=== PATIENT | female | born 1960 | race Caucasian/White ===

== ENCOUNTER 2017-01-15 10:10 | Emergency (ER) | payer OTHER ==
[~2017-01-15 10:10] MED LIST: BECL8.7A5 IH; DULO30CA PO; FEXO180T85 PO; GABA-502 PO; IPRA0.2S51 IH; KETO10DR13 BOTH_EYES; LEVA1.2515 INHALATION; LEVA15HF5 INHALATION; LOSA100T29 PO; MOME13HF INHALATION; MONT10TA23 PO; NAPR500T PO; ONDA-53 PO; PANT40TA3 PO; PRAM0.256 PO; PRD5T PO; ZOLM2.5T6 PO
[2017-01-15 10:25] VITALS: BP 129/80; PULSE 89; RESP 18; O2SAT 97
--- NOTE | 2017-01-15 10:25 | ED.REPORT ---
HPI-Dyspnea / Wheezing Date of Service Jan 15, 2017 ED Provider: Giovanny Harper MD History of Present Illness: Computer states here for SOB but pt is explicit that she is here for abdominal pain and her visit was regarding abdominal pain. Pt is a 56 y.o. female with hx of cholecystectomy, PE, and GERD who presents to the ED from c/o waxing and waning periumbilical abdominal pain radiating to her left chest currently rated at a 7 onset 2 weeks ago. Pt was seen at for her abdominal pain and they were concerned about her increased SOB so they recommended she come into the ED. Pt states that her SOB is worse than normal but not a current concern for her. She reports associated nausea, abdominal distention, and increased diarrhea (typically has 3-5 episodes a day and now has 8). Denies vomiting and dysuria. She states that the abdominal pain and distention increases after eating. She reports that it feels like "something is going to pop out" of her abdomen. She states that she was visiting her father in the hospital 2 weeks ago and he was dx with sepsis due to E. coli. Pt also reports a recent 5 day course of Tamiflu. Nursing Notes Stated Complaint: SHORTNESS OF BREATH/SENT FROM URGENT CARE Nursing Notes Reviewed: Yes (HOST[employer], [employer] Metrics not reconciled - on Xarelto for hx of PE) Allergies: Coded Allergies: Penicillins (Verified Allergy, Severe, 08/17/16) RASH salmeterol xinafoate (Verified Allergy, Severe, 08/17/16) theophylline (Verified Allergy, Severe, 08/17/16) latex (Verified Allergy, Intermediate, RASH, 08/17/16) blisters albuterol (Verified Adverse Reaction, Severe, NUMB FEELING, 08/17/16) NUMB tiotropium (Verified Adverse Reaction, Unknown, sore throat, 08/17/16) Scheduled Beclomethasone Dipropionate (Qvar) 8.7 Gm Aer.w.adap 2 PUFFS IH BID Duloxetine (Cymbalta) 30 Mg Capsule.dr 90 MG PO QAM Fexofenadine (Andreina Allergy) 180 Mg Tablet 180 MG PO QAM Gabapentin (Gabapentin) 300 Mg Capsule 900 MG PO QPM Losartan Potassium (Losartan Potassium) 100 Mg Tablet 100 MG PO DAILY Mometasone/Formoterol (Dulera 200 Mcg/5 Mcg Inhaler) 13 Gm Hfa.aer.ad 2 PUFFS INHALATION BID Montelukast (Montelukast) 10 Mg Tablet 10 MG PO HS Pantoprazole DR (Pantoprazole DR) 40 Mg Tablet.dr 40 MG PO DAILY Pramipexole Dihydrochloride (Pramipexole Dihydrochloride) 0.25 Mg Tablet 0.25 MG PO HS Prednisone (PredniSONE) 5 Mg Tab 5 MG PO DAILY Scheduled PRN Ipratropium [place] (Ipratropium [place] Inhalant Solution) 0.2 Mg/1 Ml Solution 0.2 MG IH QID PRN PRN For Shortness of Breath Ketotifen Fumarate (Allergy Eye Drops) 10 Ml Drops 1 DROP BOTH_EYES DAILY PRN PRN For Eye Irritation Levalbuterol (Levalbuterol) 1.25 Mg/3 Ml Vial.neb 3 ML INHALATION TID PRN PRN For Shortness of Breath Levalbuterol Tartrate (Xopenex Hfa) 15 Gm Hfa.aer.ad 2 PUFFS INHALATION Q4H PRN PRN For Shortness of Breath Metoclopramide (Metoclopramide) 10 Mg Tablet 10 MG PO TID PRN PRN NAUSEA/abd pain TRy taking ~20 minutes before meals Naproxen (Naprosyn) 500 Mg Tablet 1,000 MG PO DAILY PRN PRN For Pain Ondansetron (Ondansetron) 4 Mg Tablet 4-8 MG PO TID PRN PRN For Nausea Zolmitriptan (Zolmitriptan) 2.5 Mg Tablet 2.5 MG PO ONCE PRN PRN migraine may be repeated after 2 hrs oxyCODONE-Acetaminophen 5-325 mg (oxyCODONE-Acetaminophen 5-325 mg) 1 Each Tablet 1-2 TAB PO Q6H PRN PRN For Pain General Time Seen by MD: 10:20 Chief Complaint Other (Abdominal pain) Hx Obtained From: Patient Arrived By: Walk-in Sudden in Onset?: Yes Onset Occurred: More than a week ago... (2 weeks) Symptom Duration: Waxes and wanes Quality: Painful, Pressure Radiation: : Chest left Severity: Current: Pain level 7 out of 10 Severity: Maximum: Severe Past Medical History Past Medical History Notes: PCP: Dr. Wiseman at the [facility] in [place] [employer] Principal: Dr. Bhatt Well Cleaner: Dr. Evelia Virgen 01-15-17 Patient notes family member hospitalized w/sepsis at [facility] from infected kidney stones and is reportedly ESBL E Coli+ Past Medical History Anticoagulated on Xarelto for hx of PE Asthma Osteoarthritis Vitamin D deficiency Migraine Tubular adenoma Asthma IBS (irritable bowel syndrome) Osteopenia DDD (degenerative disc disease), cervical PLMD (periodic limb movement disorder) BEREKET (obstructive sleep apnea) Allergic rhinitis Anxiety and depression BCC (basal cell carcinoma of skin) GERD (gastroesophageal reflux disease) RLS (restless legs syndrome) Fibromyalgia H/o PE's on Coumadin Hypertension Hx of scoliosis Reports: Asthma, GERD, Hypertension Past Surgical History Hysterectomy Patellar fracture repairs Spinal fusion for Scoliosis Cholecystectomy 2012 Fractured patellas bilaterally 1993 with surgical pin placement Left knee arthroplasty 2000 Adenoidectomy Family History Significant for Migraines Father had bypass surgery and Stroke Mother had colitis and Rheumatoid arthritis No history of clotting diseases or cancer Smoking History Never Smoker Social History Alcohol Use: Denies alcohol use Drug Use: Denies drug use Other Social History: Good social support, , Lives with children, Local resident Ambulatory Status Independent Review of Systems Abdominal distention Respiratory: Reports: Shortness of breath Cardiovascular: Reports: Chest pain Complete sys rev & neg: except as marked. GI: Reports: Abdominal pain, Diarrhea, Nausea, Denies: Vomiting Female: Denies: Dysuria Physical Exam Initial Vital Signs Vital Signs (First) Date Time Temp Pulse Resp B/P Pulse Ox O2 Delivery O2 Flow Rate FiO2 01/15/17 10:25 37.2 89 18 129/80 97 Nasal Cannula 2 Initial VS: Reviewed (none on chart, ordered), Unavailable, Vital signs normal Head / Eyes: Atraumatic, Normocephalic Extremities: Vascular intact, Neuro intact Skin: Warm, Dry, No cyanosis Neurologic: Alert, Oriented, Nonfocal Psychiatric: Mood/affect normal, Behavior normal, Normal thought content General/Constitutional: Awake, Alert, No acute distress, Well appearing, Well developed, Well hydrated, Not toxic appearing Distress / Hydration: Negative: Dehydration mild Appearance / Presentation: Positive: Obese, morbidly, Uncomfortable Respiratory / Chest: Atraumatic, Breath sounds NL, No respiratory distress Diminished Breath Sounds: Positive: Decreased bilateral Lungs clear, bilaterally Abdomen: Atraumatic, Soft, No guarding, No rebound, BS normoactive, No distention, No palpable mass Tenderness/Guarding/Rebound: Positive: Tender epigastric, Tender periumbilical Interpretation & Diagnostics Lab Results Interpretation Result Diagram: 01/15/17 1017 01/15/17 1017 Test 01/15/17 10:17 01/15/17 11:13 White Blood Count 11.3th/mm3 (3.8-10.1) Red Blood Count 4.84mil/mm3 (3.90-5.20) Hemoglobin 12.4g/dL (12.0-15.6) Hematocrit 39.0% (35.0-46.0) Mean Corpuscular Volume 80.6fL (81-100) Mean Corpuscular Hemoglobin 25.6pg (27.0-35.0) Mean Corpuscular Hemoglobin Concent 31.8% (32.0-37.0) Red Cell Distribution Width 17.0% (12.3-15.4) Platelet Count 359bil/L (150-400) Neutrophils (%) (Auto) 72.8% (40-74) Lymphocytes (%) (Auto) 15.9% (14-46) Monocytes (%) (Auto) 8.4% (4-12) Eosinophils (%) (Auto) 2.3% (0-5) Basophils (%) (Auto) 0.4% (0-3) Sodium Level 137mEq/L (134-144) Potassium Level 4.3mEq/L (3.5-5.2) Chloride Level 97mEq/L (97-108) Carbon Dioxide Level 25mmol/L (18-29) Blood Urea Nitrogen 12mg/dL (6-24) Creatinine 0.47mg/dL (0.57-1.00) Estimat Glomerular Filtration Rate 196mL/min (>59) Glucose Level 103mg/dL (60-99) Calcium Level 9.3mg/dL (8.5-10.1) Total Bilirubin 0.3mg/dL (0.0-1.2) Aspartate Amino Transf (AST/SGOT) 21U/L (0-50) Alanine Aminotransferase (ALT/SGPT) 17U/L (0-32) Alkaline Phosphatase 73U/L (25-150) Total Protein 7.1g/dL (6.4-8.4) Albumin 4.0g/dL (3.4-5.0) Lipase 26U/L (13-60) Hold Urine Received (Received) Lab Results Interpretation: CBC trace leukocytosis CMP normal General Lab Results Interp 1: CBC - leukocytosis ECG Interpretation ECG Interpretation: EKG from reviewed, no indications to warrant repeat. Time: 10:41 Interpreted by: ED physician Normal ECG Interpretation: Normal rate (93), Normal sinus rhythm, No acute ischemic changes CT Abd / Pelvis Interpretation IMPRESSION: 1. Small hiatal hernia 2. Hepatic steatosis. 3. Fat-containing ventral hernia in the upper anterior abdominal wall. 4. Scoliosis with degenerative/post surgical changes in thoracic and lumbar spine. Dictated by: Jordan Ardno MD on 01/15/17 at 13:04 Approved by: Jordan Ardon MD on 01/15/17 at 13:12 Re-Eval/Medical Decision Med Decision/Clinical Course This is a 56-year-old female with chronic shortness breath he states she is here actually for abdominal discomfort with worsening pain, she is periumbilical pain often following attempts at eating, nausea, or she has chronic diarrheas been worse in the past week. She has been at [place] visiting a family member who is ill with sepsis, and he sounds like they may have ESBL E Coli UTI - she is also concerned about potential exposure pathogens. sHe is obese, but in no distress. She is a complicated patient with a complex patient with multiple comorbidities who is on steroids, has had prior abdominal surgeries including cholecystectomy , and is also anticoagulated on Xarelto. For these reasons workup was pursued. Blood work revealed trace leukocytosis, nonspecific and again the patient's on steroids. CT abdomen and pelvis was negative for overt pathology. She was observed for some number of hours but did well clinically. She appears well clinically. I am not finding indication of a dangerous etiology. I think the patient be discharged with supportive measures. Routine precautions however were reviewed carefully with the patient. Cleaning the need to return for worsening symptoms occur. Patient is discharged in good condition Source of Hx: Old records Re-Evaluation/Progress : Time of Eval: 14:55 Re-Evaluation/Progress Note: Pt rechecked. Discussed imaging and lab results and plan for discharge, pt understands and agrees with plan. Differential Diagnosis: Negative: Acute coronary syndrome, Airway obstruction, COPD exacerbation, Carbon monoxide poisoning, Cardiogenic shock, Exercise induced asthma Counseled Regarding: Diagnosis Discharge & Departure Impression: Primary Impression: Abdominal pain Abdominal location: generalized Qualified Code: R10.84 - Generalized abdominal pain Additional Impressions: Diarrhea Anticoagulated by anticoagulation treatment Disposition: Home Discharge Condition All VS Reviewed: Yes Condition: Stable Additional Instructions: 1. A dangerous cause of the abdominal pain was not identified. 2. Your CT scan did not reveal evidence of a bowel obstruction or other dangerous cause. Additionally there are no findings on CT scan of a colitis-a type of infection of the intestinal wall can occur and cause these symptoms. 3. Your blood tests were also normal. 4. Although your test were all normal-there are number of different conditions that can cause this type of pain and diarrhea without labs or CT imaging abnormalities-including a number of viral infections. 5. At this stage the treatment is supportive. 6. Follow-up with your doctor this coming week. 7. Return if new or worsening symptoms occur. Referrals: Jason Henderson DO (PCP) Chadd Attestation Portions of this note were transcribed by Caitlin Estrada. I, Dr. Harper personally performed the history, physical exam and medical decision-making; I reviewed and confirmed the accuracy of the information in the transcribed note. Signed by: Chadd Mello, 01/15/17 and [id number]. copies to: Jason Henderson Matthew F MD Jan 15, 2017 10:25 CAITLIN ESTRADA Jan 15, 2017 10:33
[2017-01-15] MEDS ORDERED: Ondansetron 2 mg/mL 2 mL Inj IVPUSH ONE (10:40)
[2017-01-15] MEDS ORDERED: Iohexol 300 mg/mL 30 mL Inj PO ONE (10:40)
[2017-01-15] MEDS ORDERED: 0.9% Sodium Chloride 1,000 ML IV SCH (10:40)
[2017-01-15 11:08] LABS: BASOPHILS % (AUTO) 0.4 % (0-3); EOSINOPHILS % (AUTO) 2.3 % (0-5); MONOCYTES % (AUTO) 8.4 % (4-12); Mean Corpuscular Hemoglobin 25.6 pg (27.0-35.0); Mean Corpuscular Volume 80.6 fL (81-100); NEUTROPHILS % (AUTO) 72.8 % (40-74); Platelet Count 359 bil/L (150-400)
[2017-01-15] MEDS ORDERED: METO10TA3 PO (15:08)
[2017-01-15] MEDS ORDERED: OXYC1TAB24 PO (15:08)
--- NOTE | 2017-01-15 15:15 | DRSVH ---
PROCEDURE: CT ABDOMEN AND PELVIS WITH CONTRAST ([id number]) INDICATIONS: 56 old woman with upper pain. TECHNIQUE: After the administration of intravenous contrast, 5 mm thick sections acquired from the diaphragm to the symphysis. 5 mm coronal and sagittal reformats were acquired. For radiation dose reduction, the following was used: automated exposure control, adjustment of mA and/or kV according to patient siz e. COMPARISON: [facility], CT, CT ANGIO CHEST PE, 08/17/2016, 13:19. [facility] , CR, XR CHEST 1VW (PORTABLE), 09/19/2016, 12:43. FINDINGS: Image quality: Excellent. ABDOMEN: Lung bases: Bibasilar discoid atelectasis r. Heart size is normal. Small hiatal hernia. Solid organs: There is diffuse hepatic fatty infiltration. Liver and spleen are normal in size and e nhancement. Gallbladder is surgically removed. Biliary system is non dilated. Pancreas enhances no rmally. No adrenal nodules. Kidneys demonstrate normal size and enhancement, without hydronephrosis . Peritoneum and bowel: Bowel loops demonstrate normal wall thickness and caliber. No free fluid or a ir. Nodes and vessels: No retroperitoneal or mesenteric adenopathy by size criteria. Aorta and inferior vena cava are normal in size. Miscellaneous: Small fat-containing ventral hernia is noted above the umbilicus. PELVIS: Genitourinary: Bladder wall thickness is normal. Miscellaneous: No inguinal hernias or adenopathy. Bones: No suspicious bony lesions. No vertebral body compression fractures. There is scoliosis and degenerative/postsurgical changes in thoracic and lumbar spine. IMPRESSION: 1. Small hiatal hernia. 2. Hepatic steatosis. 3. Fat-containing ventral hernia in the upper anterior abdominal wall. 4. Scoliosis with degenerative/post surgical changes in thoracic and lumbar spine. Dictated by: Jordan Ardon M.D. on 01/15/2017 at 13:04 Approved by: Jordan Ardon M.D. on 01/15/2017 at 13:12
[2017-01-15 15:20] VITALS: BP 127/78; PULSE 84; RESP 18; O2SAT 97
[2017-03-15] MEDS ORDERED: RIVA20TA PO (11:10)
[2017-03-15] MEDS ORDERED: RIVA15TA PO (11:10)
[2017-03-15] MEDS ORDERED: PRAM0.5T3 PO (11:10)
[2017-03-15] MEDS ORDERED: RANI300C PO (11:10)
== END 2017-01-15 15:21 | disposition home or self-care (01) ==
LOC: SED 10:10
DX: R10.33 Periumbilical pain (principal); R19.7 Diarrhea, unspecified; R06.02 Shortness of breath; J45.909 Unspecified asthma, uncomplicated; K21.9 Gastro-esophageal reflux disease without esophagitis; I10 Essential (primary) hypertension; Z79.01 Long term (current) use of anticoagulants; Z88.0 Allergy status to penicillin; Z88.8 Allergy status to other drugs, medicaments and biological substances; Z91.040 Latex allergy status
CPT/HCPCS: 36415; 74177; 80053; 81002; 83690; 85025; 93005; 96361; 96374; 99285; A4300; G0463; J2405; J7030; Q9967

== ENCOUNTER 2017-03-16 12:28 | Day surgery (SDC) | payer OTHER ==
[~2017-03-16] VITALS: Ht 167.6 cm; Wt 141.1 kg
[~2017-03-16 12:28] MED LIST changes: +Lactated Ringer's 1,000 ML IV ONE; +Lactated Ringer's 1,000 ML IV SCH; +METO10TA3 PO; +MetoCLOpramide 5 mg/mL 2 mL Inj IVPUSH PRN; +Ondansetron 2 mg/mL 2 mL Inj IVPUSH PRN; +PRAM0.5T3 PO; +RANI300C PO; +RIVA15TA PO; +RIVA20TA PO
[2017-03-16] MEDS ORDERED: Propofol 10,000 mCg/mL 20 mL Inj ONE (12:29)
[2017-03-16 13:19] VITALS: BP 145/72; PULSE 100; RESP 16; O2SAT 93
[2017-03-16] MEDS ORDERED: OMEP20CA11 PO (13:53)
[2017-03-16] MEDS ORDERED: MOME13HF2 IH (13:53)
[2017-03-16] MEDS ORDERED: LEVA15HF5 IH (13:53)
[2017-03-16] MEDS ORDERED: NAPR500T PO (13:53)
[2017-03-16] MEDS ORDERED: OMEP20TA86 PO (13:53)
--- NOTE | 2017-03-16 14:14 | PCM.HPANE ---
Patient Data Surgeon Admitting Provider: Attending Provider:Keegan Arceo MD Primary Care Physician:Willis Estrada DO Other Provider:Odalis Stein Anesthesia Reason for Visit Hx Of Colon Polyps/Epigastric Pain Ht/WT & BMI Height (Feet): 5 Height (Inches): 6 Weight (Kilograms): 141.07 Body Mass Index 49.00 Allergies Coded Allergies: Penicillins (Verified Allergy, Severe, 03/15/17) RASH salmeterol xinafoate (Verified Allergy, Severe, 03/15/17) theophylline (Verified Allergy, Severe, 03/15/17) latex (Verified Allergy, Intermediate, RASH, 03/15/17) blisters salmeterol (Verified Allergy, Unknown, 03/15/17) albuterol (Verified Adverse Reaction, Severe, NUMB FEELING, 03/15/17) NUMB codeine (Verified Adverse Reaction, Severe, 03/15/17) gi upset milk (Verified Adverse Reaction, Severe, Nausea,Vomiting, 03/15/17) tiotropium (Verified Adverse Reaction, Unknown, sore throat, 03/15/17) Past Anesthesia History Anesthesia History: Denies:: Abnormal Airway, Anesthesia Reactions, Difficult Intubation, Fam Anesthesia Reaction, Fam Malignant Hypertherm, Malignant Hyperthermia Diabetes History Hx Diabetes?: No MRSA MRSA: No Medications Blood Thinner: Xarelto Last Dose Blood Thinner: Mar 13, 2017 Home Meds Incl Beta Cy: No Active Scripts Metoclopramide 10 Mg Xwhkgs71 Mg PO TID PRN NAUSEA/abd pain #30 TABLET Ref 0 TRy taking ~20 minutes before meals Prov:Giovanny Harper MD 01/15/17 Prednisone (PredniSONE)5 Mg Tab5 Mg PO DAILY #30 Prov:Jhoan Cortez MD 08/19/16 Reported Medications Omeprazole 20 Mg Capsule.dr20 Mg PO BID Ref 0 03/16/17 Omeprazole 20 Mg Tablet.dr20 Mg PO DAILY 03/16/17 Levalbuterol Tartrate (Xopenex Hfa)15 Gm Hfa.aer.ad2 Puff IH Q4 PRN For Shortness of Breath #1 INH 03/16/17 Naproxen (Naprosyn)500 Mg Avejyn068 Mg PO BID PRN For Pain Ref 0 03/16/17 Mometasone/Formoterol (Dulera 100 Mcg/5 Mcg Inhaler)13 Gm Hfa.aer.ad2 Puffs IH BID 03/16/17 Rivaroxaban (Xarelto)20 Mg Nnpgqy33 Mg PO DAILYWD 03/15/17 Ranitidine 300 Mg Pfdvsrf178 Mg PO DAILY Ref 0 03/15/17 Pramipexole Dihydrochloride (Mirapex)0.5 Mg Tablet0.5 Mg PO HS 03/15/17 Fexofenadine (Andreina Allergy)180 Mg Hlthzh469 Mg PO QAM 08/17/16 Zolmitriptan 2.5 Mg Tablet2.5 Mg PO ONCE PRN migraine may be repeated after 2 hrs 08/17/16 Losartan Potassium 100 Mg Rpwuof555 Mg PO DAILY 08/17/16 Levalbuterol 1.25 Mg/3 Ml Vial.neb3 Ml INHALATION TID PRN For Shortness of Breath 08/17/16 Ketotifen Fumarate (Allergy Eye Drops)10 Ml Drops1 Drop BOTH_EYES DAILY PRN For Eye Irritation 08/17/16 Levalbuterol Tartrate (Xopenex Hfa)15 Gm Hfa.aer.ad2 Puffs INHALATION Q4H PRN For Shortness of Breath 08/17/16 Naproxen (Naprosyn)500 Mg Tablet1,000 Mg PO DAILY PRN For Pain 02/13/16 Beclomethasone Dipropionate (Qvar)8.7 Gm Aer.w.adap2 Puffs IH BID 01/07/16 Ondansetron 4 Mg Tablet4-8 Mg PO TID PRN For Nausea 01/07/16 Montelukast 10 Mg Mqubwv71 Mg PO HS 01/07/16 Ipratropium [place] (Ipratropium [place] Inhalant Solution)0.2 Mg/1 Ml Solution0.2 Mg IH QID PRN For Shortness of Breath 01/07/16 Gabapentin 300 Mg Hpcjnxb212 Mg PO QPM 01/07/16 Duloxetine (Cymbalta)30 Mg Capsule.dr90 Mg PO QAM 01/07/16 Discontinued Reported Medications Rivaroxaban (Xarelto)15 Mg Aigjgr46 Mg PO BID 03/15/17 Pramipexole Dihydrochloride 0.25 Mg Tablet0.25 Mg PO HS 08/17/16 Mometasone/Formoterol (Dulera 200 Mcg/5 Mcg Inhaler)13 Gm Hfa.aer.ad2 Puffs INHALATION BID 08/17/[address] 40 Mg Tablet.dr40 Mg PO DAILY 01/07/16 Discontinued Scripts oxyCODONE-Acetaminophen 5-325 mg 1 Each Tablet1-2 Tab PO Q6H PRN For Pain #20 TABLET Ref 0 Prov:Giovanny Harper MD 01/15/17 Last Time Dose Received Took all meds and scheduled and prn inhalers today as prescribed History History of ENT Problems?: Yes HEENT History: Positive for:: Dysphagia (SOLIDS/LIQUIDS) Hearing Problem (MILD MESA GRANDE) Sinus Problem (r/t seasonal allergies) Denies:: Abnormal Airway Difficult Intubation Denture Type: None Teeth Condition: Within Normal Limits Hx of Heart Problems?: No Cardiovascular History: Positive for:: Edema Hypertension Denies:: AICD Atrial Fibrillation Chest Pain Congestive Heart Failure Pacemaker Valvular Heart Disease Hx of Respiratory Problem?: Yes Respiratory History: Positive for:: Asthma Dyspnea Pneumonia Denies:: COPD Cough Hemoptysis Tuberculosis Other Resp Pertinent History: HOME O2 2L. Other History/Comment Diagnosed with asthma 20 years ago. It's worsened in last 11 years. Has exacerbations 4 times per year. Most recently had an exacerbation related to flu/virus URI, 3 weeks ago. Has been on O2 for approximately 6 months. She feels her breathing is at baseline. Hx Neurologic Problems?: Yes Neurological History: Positive for:: Headaches (migranes) Denies:: CVA Dementia Hx of GI Problems?: Yes Other GI Pertinent History: HX OF DUODENAL ULCER Hx of Problems?: No HX of Peritoneal Dialysis: No Female Hx: Denies:: Currently Pelvic Inflammatory Problems with Breasts? Hx Musculoskeletal Problems?: Yes Musculoskeletal History: Positive for:: Back Injury (h/o scoliosis, DDD cervical) Fibromyalgia Musculoskeletal Trauma (rt.foot stress fractures) Denies:: Joint Replacement Hx of Psycho/Social Problems?: Yes Psycho Social History: Positive for:: Hx Depression Denies:: Anxiety Hx Surgeries?: Yes (TONSILS/MAHI, T FUS W/ RODS, LAP ANA, BLADDER SLING, HYSTO, BILAT KNEE ) Hx Any Other Health Problems?: Yes Other History: Positive for:: Cancer (basal cell ca) Hospitalization Denies:: Thyroid Disease History Blood Transfusions: Positive for:: Blood Transfusions Denies:: Blood Transfuse Reaction Hx Diabetes: No Hx Alcohol Use: NoHx Substance Use: No Smoking Status: Never Smoker Have You Smoked inLast 12 mo: No Stop/Bang Treated for Sleep Apnea?: Yes Do You Have a CPAP Machine?: Yes (COMPLIANT WITH NIGHTLY USE) Risk Assessment Category Category 1A: Patient has history of documented sleep apnea, and HAS NOT received any narcotic, sedative or anesthesia administration during this stay. Category 1B: Patient has history of documented sleep apnea, and HAS received any narcotic , sedative or anesthesia administration during this stay Category 2: Patient has SUSPECTED Obstructive Sleep Apnea, and HAS received any narcotic , sedative or anesthesia administration during this stay. Category 3: Patient has SUSPECTED Obstructive Sleep Apnea and HAS NOT received narcotic, sedative or anesthesia administration during this stay. Category 4: Outpatient in Procedural Areas with known sleep apnea or who screen positive for High Risk via the STOP/BANG questionnaire. Exam Exam Vital Signs Vital Signs Date Time Temp Pulse Resp B/P Pulse Ox O2 Delivery O2 Flow Rate FiO2 03/16/17 13:19 36.4 100 16 145/72 93 Nasal Cannula 2 General Appearance: Alert, Oriented X3 HEENT/AIRWAY: MP 2, Neck Movement (FROM) Lungs: Clear to Auscultation, Clear to Percussion Heart: Exam Unremarkable, Regular Rate/Rhythm Meds/Labs/Diagnostics Admission Meds Current Medications Lactated Ringer's (Lr) 1,000 ml @ 120 mls/hr Q8H20M IV Last administered on t 13:46; Start 03/16/17 at 07:11; Stop 03/16/17 at 15:10 Plan Impression Patient chart reviewed, patient interviewed and anesthestic plan with risks, benefits, and alternatives discussed, and informed consent obtained. ASA Physical Status: ASA4 Life Threatening Anesthetic Plan: MAC Bene/Risks/Altern/Consents: Yes HP Complete Prior to Induction: Yes Other We had a long discussion about the risks of proceeding with upper endoscopy in the context of her severe asthma. It sounds like she is at her baseline and will not likely improve. She is having a lot of abdominal discomfort, nausea, and dysphagia so an endoscopy would be helpful in working through the possible etiology of these sx's. I will topicalize her AW with topical lidocaine via atomizer. I will have a low threshold for cancelling her case if I have concerns during the procedure. The pt. understands the risks and would like to proceed today. Yariel Lakhani MD Mar 16, 2017 14:14
[2017-03-16 15:03] VITALS: BP 89/65; PULSE 100; RESP 16; O2SAT 95
--- NOTE | 2017-03-16 15:06 | PCM.ANEP1 ---
Post Anesthesia Phase 1 PACU Phase 1 Assessment Vital Signs Vital Signs Date Time Temp Pulse Resp B/P Pulse Ox O2 Delivery O2 Flow Rate FiO2 03/16/17 13:19 36.4 100 16 145/72 93 Nasal Cannula 2 Anesthetic Administered: MAC Level of Alertness: Awake, talking MICHEL's with Equal Strength: Yes Pain: No Nausea or Vomiting: No Oxygen Delivery: Nasal Cannula (4L) Lungs: Clear to Auscultation, Clear to Percussion Comments Well tolerated See anesth record for PACU VS. PACU VSS Yariel Lakhani MD Mar 16, 2017 15:06
[2017-03-16 15:13] VITALS: BP 166/83; PULSE 92; RESP 16; O2SAT 100
[2017-03-16 15:23] VITALS: BP 138/42; PULSE 96; RESP 16; O2SAT 100
[2017-03-16 15:33] VITALS: BP 125/60; PULSE 89; RESP 16; O2SAT 100
--- NOTE | 2017-03-16 23:17 | ENDO ---
[address] [address] ENDOSCOPY PROCEDURE PATIENT: TREE GONZALEZ I : 1960 MR#: [id number] ADMIT: 03/16/2017 JOB ID: [id number] PROCEDURE #1: Esophagogastroduodenoscopy. INDICATIONS: Epigastric pain. The patient's ASA classification, Mallampati score, and medications are as anesthesia note. INSTRUMENT USED: GIF H 180 J. PROCEDURE DETAILS: After informed consent was obtained, the patient was brought to the GI suite, where she was placed on oxygen via nasal cannula and monitored with continuous pulse oximeter, telemetry, and blood pressure monitoring. A time-out was performed. Then, she was placed in a left lateral decubitus position and medications were administered for sedation. A bite block was placed. The standard EGD scope was inserted into the bite block, advanced under direct visualization to the second portion of the duodenum without difficulty. FINDINGS: 1. Normal-appearing duodenal bulb, first and second portion. 2. Normal-appearing pylorus. In the antrum and body of stomach, there was erythema suggestive of gastritis. Multiple random biopsies were obtained. In the gastric body, there were multiple polyps ranging in size from 5 mm to 8 mm. Polyps appearance was consistent with fundic gland polyps. The largest polyp was biopsied. 3. Retroflexed views in the gastric body revealed a normal-appearing cardia and fundus. 4. The GE junction was regular at 40 cm. 5. Normal-appearing esophagus. IMPRESSION: 1. Gastritis. 2. Fundic gland polyps. RECOMMENDATIONS: 1. Await biopsy results. 2. Continue PPI. 3. Proceed to colonoscopy. COMPLICATIONS: None. ESTIMATED BLOOD LOSS: 5 mL. PROCEDURE #2: Colonoscopy. INDICATION: Patient with a history of colon polyps. Please see above for ASA classification, Mallampati score, and medications. INSTRUMENT: PCF H 180 H 190 AL. PREPARATION QUALITY: Fair. PROCEDURE IN DETAIL: After completion of the EGD exam, the patient was then turned and then a digital rectal exam was performed and was unremarkable. The colonoscope was then inserted into the rectum and advanced under direct visualization to the cecum, which was identified by the presence of the ileocecal valve and appendiceal orifice. Once the cecum was reached, the colonoscope was withdrawn back to the rectum and mucosa and lumen were examined. In the rectum, retroflexion was performed. Following retroflexion, remaining air in the rectum was suctioned, and procedure was completed. FINDINGS: 1. In the transverse colon, there was a flat polyp that measured approximately 8 mm. The polyp was lifted using normal saline and then removed with a hot snare. 2. Just distal to this polyp there was another polyp in the transverse colon that measured approximately 5 mm which was removed with a hot snare. 3. In the descending colon, there were two polyps, one which was diminutive and removed with cold biopsy forceps and the 2nd which measured approximately 5 mm and was sessile and was removed with the hot snare. 4. Retroflexed views in the rectum revealed moderate-sized internal hemorrhoids. ASSESSMENT: 1. Two transverse colon polyps. 2. Two descending polyps. 3. Internal hemorrhoids. RECOMMENDATION: 1. Avoid NSAIDs and anticoagulants for 72 hours. 2. Repeat colonoscopy in three years. 3. Follow up in GI clinic with Lucinda Kaur PA-C in 2-4 weeks. COMPLICATION: None. ESTIMATE OF BLOOD LOSS: Less than 5 mL.
--- NOTE | 2017-03-20 14:25 | PATH ---
SURGICAL PATHOLOGY Attending Physician:Warner Gilmore CASE STATUS: Signed Out PATIENT NAME: TREE GONZALEZ I. PID: [id number] : 1960 DATE COLLECTED:03/16/2017 00:00 SPECIMEN: 1: Stomach, Polyp, Biopsy 2: Gastric, Biopsy 3: Colon, Biopsy 4: Colon, Biopsy CLINICAL HISTORY: 1). GASTRIC POLYP BIOPSY 2). RANDOM GASTRIC BIOPSY 3). TRANSVERSE COLON POLYPS 4). DESCENDING COLON POLYPS FINAL DIAGNOSIS: 1.GASTRIC POLYP BIOPSY: FUNDIC GLAND POLYP. Negative for evidence of Helicobacter. Negative for intestinal metaplasia. Negative for dysplasia and malignancy. 2.RANDOM GASTRIC BIOPSY: MILD CHRONIC GASTRITIS INVOLVING FUNDIC AND SMALL FRAGMENT OF ANTRAL MUCOSA. Negative for evidence of Helicobacter. Negative for intestinal metaplasia. Negative for dysplasia and malignancy. 3.TRANSVERSE COLON POLYPS: SESSILE SERRATED ADENOMA INVOLVING MULTIPLE BIOPSY FRAGMENTS. 4.DESCENDING COLON POLYPS: HYPERPLASTIC POLYPS INVOLVING ALL BIOPSY FRAGMENTS. ICD10 CODE K31.7 GROSS DESCRIPTION: Received are four formalin-filled containers, each labeled with the patient' s name. 1. Received in formalin, labeled with the patient' s name and "gastric polyp BX", are two fragments of jansen, soft tissue ranging in size from 0.1 x 0.1 x 0.1 cm to 0.2 x 0.1 x 0.1 cm. All fragments are totally submitted in cassette 1A. 2. Received in formalin, labeled with the patient' s name and "random gastric BX", are five fragments of jansen, soft tissue ranging in size from less than 0.1 cm by less than 0.1 cm by less than 0.1 cm to 0.2 x 0.1 x 0.1 cm. All fragments are totally submitted in cassette 2A. 3. Received in formalin, labeled with the patient' s name and "transverse polyps", are multiple fragments of jansen, soft tissue ranging in size from 0.1 x 0.1 x 0.1 cm to 0.8 x 0.8 x 0.4 cm. The larger fragment is divided, and all fragments are totally submitted in cassette 3A. 4. Received in formalin, labeled with the patient' s name and "descending polyps", are three fragments of jansen, soft tissue ranging in size from 0.2 x 0.2 x 0.2 cm to 0.5 x 0.5 x 0.4 cm. The larger fragment is divided, and all fragments are totally submitted in cassette 4A. ([id number]) MICRO DESCRIPTION: See diagnosis. ICD-9 CODES: CPT CODES: 1: 83016 2: 24865 3: 14110 4: 40490 Electronically Signed Out Galdino Walls MD [facility] Pathology [facility] [address], [place] [address] Technical component performed at [facility], [address], [place], [address]
== END 2017-03-16 23:59 | disposition home or self-care (01) ==
LOC: END 12:28
PROVIDERS: ATTEND Internal Medicine Gastroenterology
DX: Z12.11 Encounter for screening for malignant neoplasm of colon (principal); D12.3 Benign neoplasm of transverse colon; K64.8 Other hemorrhoids; K63.5 Polyp of colon; Z86.010 Personal history of colon polyps; K29.50 Unspecified chronic gastritis without bleeding; K31.7 Polyp of stomach and duodenum; I27.82 Chronic pulmonary embolism; J45.909 Unspecified asthma, uncomplicated; I10 Essential (primary) hypertension; E55.9 Vitamin D deficiency, unspecified; G43.909 Migraine, unspecified, not intractable, without status migrainosus; G47.33 Obstructive sleep apnea (adult) (pediatric); F41.8 Other specified anxiety disorders; K21.9 Gastro-esophageal reflux disease without esophagitis; G25.81 Restless legs syndrome; M79.7 Fibromyalgia; Z79.52 Long term (current) use of systemic steroids; Z79.51 Long term (current) use of inhaled steroids; Z79.01 Long term (current) use of anticoagulants
CPT/HCPCS: 43239; 45380; 45381; 45385; J7120

== ENCOUNTER 2017-05-09 14:06 | Emergency (ER) | payer OTHER ==
[~2017-05-09] VITALS: Ht 167.6 cm; Wt 143.2 kg
[~2017-05-09 14:06] MED LIST changes: +LEVA15HF5 IH; -Lactated Ringer's 1,000 ML IV ONE; -Lactated Ringer's 1,000 ML IV SCH; -MOME13HF INHALATION; +MOME13HF2 IH; -MetoCLOpramide 5 mg/mL 2 mL Inj IVPUSH PRN; +OMEP20CA11 PO; +OMEP20TA86 PO; -Ondansetron 2 mg/mL 2 mL Inj IVPUSH PRN; -PANT40TA3 PO; -PRAM0.256 PO; -RIVA15TA PO
[2017-05-09 14:09] VITALS: BP 138/94; PULSE 102; RESP 24; O2SAT 93
[2017-05-09 14:20] VITALS: RESP 32; O2SAT 93
[2017-05-09 14:46] LABS: BASOPHILS % (AUTO) 0.2 % (0-3); EOSINOPHILS % (AUTO) 0.2 % (0-5); Mean Corpuscular Hemoglobin 24.7 pg (27.0-35.0); Mean Corpuscular Volume 80.7 fL (81-100); NEUTROPHILS % (AUTO) 86.9 % (40-74); Platelet Count 412 bil/L (150-400)
--- NOTE | 2017-05-09 15:03 | DRSVH ---
PROCEDURE: X-RAY CHEST ONE VIEW, PORTABLE ([id number]) INDICATIONS: SOB TECHNIQUE: One view of the chest was acquired. COMPARISON: [facility], CR, XR CHEST 2VW, 09/12/2016, 18:08. [facility], C T, CT ANGIO CHEST PE, 08/17/2016, 13:19. [facility], CR, XR CHEST 2VW, 05/10/2016, 15:43. [facility], CR, XR CHEST 1VW (PORTABLE), 09/19/2016, 12:43. FINDINGS: Surgical changes and devices: Postsurgical changes are redemonstrated status post posterior fixation in the thoracolumbar spine. Lungs and pleura: No pleural effusions or pneumothorax. There are a few linear right basilar opacit ies redemonstrated likely representing scarring. No acute consolidation. Mediastinum: Mediastinal contours appear normal. Heart size is normal. Bones and chest wall: There is an old healed fracture of the left anterior 3rd rib. Overlying soft tissues appear unremarkable. IMPRESSION: 1. Linear right basilar opacities redemonstrated likely representing scarring. Dictated by: Jean Paul Moss M.D. on 05/09/2017 at 14:59 Approved by: Jean Paul Moss M.D. on 05/09/2017 at 15:02
[2017-05-09 15:13] LABS: TROPONIN T < 0.010 ug/L (0.0-0.011)
--- NOTE | 2017-05-09 15:22 | ED.REPORT ---
HPI-General Illness Date of Service May 09, 2017 ED Provider: Zaki Ware MD Patient is a 56 year old female with a hx of asthma and previous unprovocked PE' s on Xarelto who presents to the ED complaining of SOB with a low O2 sat of 88- 90% onset last week. She uses O2 daily (normally 2L but now 3.5L and a sat of 94 ) at home. Associated symptoms include wheezing with exertion, dizziness and a non-productive cough. She denies chest pain, nausea, diaphoresis, calf swelling or tenderness, or any other symptoms. She saw her asthma specialist (Dr. Teofilo Cabrera) last week who started her on Prednisone and Atrovent without relief. The Atrovent gave her her a headache and nausea so she stopped taking it today. She has used Xopenex (4-5x a day) due to her allergy to albuterol. She does not know the cause of her PE (Dec 2014). She see's Dr. Castaneda. She has had atelectasis in the same spot as her previous PE. She had a negative D- dimer last week. Nursing Notes Stated Complaint: SOB, LOW O2 SAT Chief Complaint: Respiratory Complaints Nursing Notes Reviewed: Yes Allergies: Coded Allergies: Penicillins (Verified Allergy, Severe, 03/15/17) RASH salmeterol xinafoate (Verified Allergy, Severe, 03/15/17) theophylline (Verified Allergy, Severe, 03/15/17) latex (Verified Allergy, Intermediate, RASH, 03/15/17) blisters salmeterol (Verified Allergy, Unknown, 03/15/17) albuterol (Verified Adverse Reaction, Severe, anaphalysis, 05/09/17) NUMB codeine (Verified Adverse Reaction, Severe, 03/15/17) gi upset milk (Verified Adverse Reaction, Severe, Nausea,Vomiting, 03/15/17) tiotropium (Verified Adverse Reaction, Unknown, sore throat, 03/15/17) Scheduled Beclomethasone Dipropionate (Qvar) 8.7 Gm Aer.w.adap 2 PUFFS IH BID Duloxetine (Cymbalta) 30 Mg Capsule.dr 90 MG PO QAM Fexofenadine (Andreina Allergy) 180 Mg Tablet 180 MG PO QAM Gabapentin (Gabapentin) 300 Mg Capsule 900 MG PO QPM Losartan Potassium (Losartan Potassium) 100 Mg Tablet 100 MG PO DAILY Mometasone/Formoterol (Dulera 100 Mcg/5 Mcg Inhaler) 13 Gm Hfa.aer.ad 2 PUFFS IH BID Montelukast (Montelukast) 10 Mg Tablet 10 MG PO HS Omeprazole (Omeprazole) 20 Mg Tablet.dr 20 MG PO DAILY Omeprazole (Omeprazole) 20 Mg Capsule.dr 20 MG PO BID Pramipexole Dihydrochloride (Mirapex) 0.5 Mg Tablet 0.5 MG PO HS Prednisone (PredniSONE) 5 Mg Tab 5 MG PO DAILY Ranitidine (Ranitidine) 300 Mg Capsule 300 MG PO DAILY Rivaroxaban (Xarelto) 20 Mg Tablet 20 MG PO DAILYWD Scheduled PRN Ipratropium [place] (Ipratropium [place] Inhalant Solution) 0.2 Mg/1 Ml Solution 0.2 MG IH QID PRN PRN For Shortness of Breath Ketotifen Fumarate (Allergy Eye Drops) 10 Ml Drops 1 DROP BOTH_EYES DAILY PRN PRN For Eye Irritation Levalbuterol (Levalbuterol) 1.25 Mg/3 Ml Vial.neb 3 ML INHALATION TID PRN PRN For Shortness of Breath Levalbuterol Tartrate (Xopenex Hfa) 15 Gm Hfa.aer.ad 2 PUFFS INHALATION Q4H PRN PRN For Shortness of Breath Levalbuterol Tartrate (Xopenex Hfa) 15 Gm Hfa.aer.ad 2 PUFF IH Q4 PRN PRN For Shortness of Breath Metoclopramide (Metoclopramide) 10 Mg Tablet 10 MG PO TID PRN PRN NAUSEA/abd pain TRy taking ~20 minutes before meals Naproxen (Naprosyn) 500 Mg Tablet 1,000 MG PO DAILY PRN PRN For Pain Naproxen (Naprosyn) 500 Mg Tablet 500 MG PO BID PRN PRN For Pain Ondansetron (Ondansetron) 4 Mg Tablet 4-8 MG PO TID PRN PRN For Nausea Zolmitriptan (Zolmitriptan) 2.5 Mg Tablet 2.5 MG PO ONCE PRN PRN migraine may be repeated after 2 hrs General Time Seen by MD: 15:02 Chief Complaint Breathing problem Hx Obtained From: Patient Arrived By: Walk-in Sudden in Onset?: Yes Onset Occurred: 1 week ago Symptom Duration: Since onset Recent Healthcare: Recent doctor visit Past Medical History Past Medical History Notes: PCP: Dr. Wiseman at the [facility] in [place] Diver: Dr. Bhatt Superintendent Colliery: Dr. Evelia Virgen Worried about adrenal gland insuficiency Past Medical History Anticoagulated on Xarelto for hx of PE Asthma Osteoarthritis Vitamin D deficiency Migraine Tubular adenoma Asthma IBS (irritable bowel syndrome) Osteopenia DDD (degenerative disc disease), cervical PLMD (periodic limb movement disorder) BEREKET (obstructive sleep apnea) Allergic rhinitis Anxiety and depression BCC (basal cell carcinoma of skin) GERD (gastroesophageal reflux disease) RLS (restless legs syndrome) Fibromyalgia H/o PE's on Coumadin Hypertension Hx of scoliosis Reports: Asthma, GERD, Hypertension Past Surgical History Hysterectomy Patellar fracture repairs Spinal fusion for Scoliosis Cholecystectomy 2012 Fractured patellas bilaterally 1994 with surgical pin placement Left knee arthroplasty 2000 Adenoidectomy Family History Significant for Migraines Father had bypass surgery and Stroke Mother had colitis and Rheumatoid arthritis No history of clotting diseases or cancer Smoking History Never Smoker Social History Alcohol Use: Denies alcohol use Drug Use: Denies drug use Other Social History: Good social support, , Lives with children, Local resident Ambulatory Status Independent Review of Systems Full Review of Systems Eyes: Reports: Blurred bilateral Respiratory: Reports: Non-productive cough, Shortness of breath, Wheezing Cardiovascular: Denies: Chest pain GI: Denies: Nausea Musculoskeletal: Denies: Extremity pain, Extremity swelling Skin: Denies Diaphoresis Neurologic: Reports: Dizziness, Numbness (with tingling) Complete sys rev & neg: except as marked. Physical Exam Vital Signs Vital Signs Date Time Temp Pulse Resp B/P Pulse Ox O2 Delivery O2 Flow Rate FiO2 05/09/17 21:17 78 18 139/79 96 Nasal Cannula 2 05/09/17 19:09 36.6 94 21 117/54 93 Nasal Cannula 3 05/09/17 15:32 100 18 152/79 93 Nasal Cannula 2.5 05/09/17 14:20 32 93 Room Air 05/09/17 14:09 37.6 102 24 138/94 93 Nasal Cannula 3.5 Initial VS: Reviewed Head / Eyes: Atraumatic, Normocephalic Neck: Full range of motion Skin: Warm, Dry General/Constitutional: Awake, Alert, No acute distress, Well developed Respiratory / Chest: Breath sounds NL Wheezing / Retractions: Positive: Wheezing expiratory (scattered ) Speaking in full sentences with ease Lungs clear 94% on 2.5L No crackles Abdomen: Soft, Non-tender Back: Non-tender Midline surgical incision Lower Extremity / Pelvis / MS: No swelling, Non-tender Neurologic: Oriented X3, Speech NL No lateralizing findings Interpretation & Diagnostics Lab Results Interpretation Result Diagram: 05/09/17 1400 05/09/17 1400 Test 05/09/17 14:00 White Blood Count 17.0th/mm3 (3.8-10.1) Red Blood Count 5.02mil/mm3 (3.90-5.20) Hemoglobin 12.4g/dL (12.0-15.6) Hematocrit 40.5% (35.0-46.0) Mean Corpuscular Volume 80.7fL (81-100) Mean Corpuscular Hemoglobin 24.7pg (27.0-35.0) Mean Corpuscular Hemoglobin Concent 30.6% (32.0-37.0) Red Cell Distribution Width 17.4% (12.3-15.4) Platelet Count 412bil/L (150-400) Neutrophils (%) (Auto) 86.9% (40-74) Lymphocytes (%) (Auto) 7.1% (14-46) Monocytes (%) (Auto) 5.0% (4-12) Eosinophils (%) (Auto) 0.2% (0-5) Basophils (%) (Auto) 0.2% (0-3) Sodium Level 137mEq/L (134-144) Potassium Level 4.4mEq/L (3.5-5.2) Chloride Level 101mEq/L (97-108) Carbon Dioxide Level 22mmol/L (18-29) Blood Urea Nitrogen 18mg/dL (6-24) Creatinine 0.67mg/dL (0.57-1.00) Estimat Glomerular Filtration Rate 130mL/min (>59) Glucose Level 142mg/dL (60-99) Calcium Level 9.6mg/dL (8.5-10.1) Total Bilirubin 0.3mg/dL (0.0-1.2) Aspartate Amino Transf (AST/SGOT) 17U/L (0-50) Alanine Aminotransferase (ALT/SGPT) 19U/L (0-32) Alkaline Phosphatase 78U/L (25-150) Troponin T < 0.010ug/L (0.0-0.011) Pro-B-Type Natriuretic Peptide 5.00pg/mL (0-287) Total Protein 7.2g/dL (6.4-8.4) Albumin 4.0g/dL (3.4-5.0) Hold Schneider Top Tube Received (Received) ECG Interpretation ECG Interpretation: Sinus rate 99 nL axis and interval no ST, T changes Similar to prior 09/19/16 Time: 14:45 Interpreted by: ED physician X-Ray Chest Interpretation Chest Xray Interpretation: IMPRESSION: 1. Linear right basilar opacities redemonstrated likely representing scarring. Dictated by: Jean Paul Moss M.D. on 05/09/2017 at 14:59 Approved by: Jean Paul Moss M.D. on 05/09/2017 at 15:02 View: Portable, 1 view Interpretation / Wet Read by: Interpret - Radiologist CT Chest Interpretation IMPRESSION: No acute emboli in the main, left or right pulmonary arteries. Smaller pulmonary arteries are obscured by respiratory artifact and poor opacification. They cannot be evaluated for pulmonary embolus. Dictated by: Arpit Wilkins M.D. on 05/09/2017 at 19:51 Approved by: Arpit Wilkins M.D. on 05/09/2017 at 19:58 Study type: CT pulm angiogram Interpretation / Wet Read by: Interpret - Radiologist Re-Eval/Medical Decision Med Decision/Clinical Course In summary, the patient is a 56-year-old female with a history of prior unprovoked pulmonary emboli for which she is on prophylactic Xarelto as well as severe asthma/COPD on 2 L of home oxygen who presents to the emergency department with concern for low oxygen saturation at home despite using 2-3 L by nasal cannula as well as increasing work of breathing and shortness of breath despite being on prolonged prednisone taper from her [facility]. Upon arrival the patient is in no apparent distress with oxygen saturation in the mid 90s on 2.5 L by nasal cannula. She is speaking in full sentences with relative ease. She reports she was sent here by her [facility] tree stitcher office with concern that her breathing issues could be related to pulmonary embolism. CXR: Linear right basilar opacities redemonstrated likely representing scarring. CTA chest: No acute emboli in the main, left or right pulmonary arteries. Smaller pulmonary arteries are obscured by respiratory artifact and poor opacification. They cannot be evaluated for pulmonary embolus. Labs as below: cbc leuk 17 pt on prednisone taper otherwise unremark cmp unreamrk coag NL Here in the emergency department the patient was treated with Xopenex nebulizer and reported significant subjective improvement. She ambulated on her baseline 2-3 L by nasal cannula without any significant respiratory distress and maintaining oxygen saturation in the mid 90s. There is no evidence of pulmonary embolism pneumonia or pneumothorax. She seems to be stable from respiratory status. While she is noted to have leukocytosis this is in the setting of being on prednisone and I see no evidence that this is reflective of underlying infectious process. Patient reports that she feels much better and would like to go home to continue her regular asthma therapy and prednisone taper. I feel that this is appropriate. Prior to discharge follow-up and return precautions were reviewed in detail with the patient who verbalized understanding and agreement with the plan. The patient was discharged in stable condition. Time of Eval: 20:30 Re-Evaluation/Progress Note: Discussed plan for discharge. Patient understands and agrees with plan. All questions addressed at this time. Counseled Regarding: Diagnosis, Lab results, Need for follow-up, When/why to return to ED Discharge & Departure Primary Impression: Asthma exacerbation Additional Impressions: History of pulmonary embolism Hypoxia Respiratory distress Leukocytosis Leukocytosis type: unspecified Qualified Code: D72.829 - Elevated white blood cell count, unspecified Disposition: Home Discharge Condition All VS Reviewed: Yes Condition: Stable Additional Instructions: Thank you for seeking care at the emergency room. It is difficult for us to make definitive diagnoses in the ED but we believe that you are experiencing shortness of breath due to your lung disease. The CT scan of your chest showed no new blood clots. Our primary goal today in the ED was to evaluate you for any life-threatening conditions. Your evaluation was reassuring. You should follow-up with your primary doctor in the next 1-2 days. Please continue to use your inhaler and take prednisone as directed. You should return to the ED immediately if you develop any worsening symptoms, fevers, vomiting, cough, shortness of breath, chest pain, lightheadedness, weakness or any other concerning signs or symptoms. Thank you for letting us partake in your care today. Referrals: ARMIN DE ANDA DO (PCP) Marco Antonio Osullivan DO (Family) Scribe Attestation Portions of this note were transcribed by [place]. I, Dr. Ware personally performed the history, physical exam and medical decision-making; I reviewed and confirmed the accuracy of the information in the transcribed note. Signed by: [place] 05/09/[id number] copies to: ARMIN DE ANDA DO; Marco Antonio Osullivan Beck O MD May 09, 2017 15:22 [place] May 09, 2017 15:45
[2017-05-09 15:32] VITALS: BP 152/79; PULSE 100; RESP 18; O2SAT 93
[2017-05-09] MEDS ORDERED: Levalbuterol 1.25 mg/0.5mL Inhalation Solution NEB ONE (15:55)
[2017-05-09 19:09] VITALS: BP 117/54; PULSE 94; RESP 21; O2SAT 93
--- NOTE | 2017-05-09 20:05 | DRSVH ---
PROCEDURE: CT ANGIO CHEST PULMONARY EMBOLISM ([id number]) INDICATIONS: SOB TECHNIQUE: After the administration of intravenous contrast, 2 mm thick sections acquired from the pulmonary api marti to the posterior costophrenic angles. 3-dimensional maximum intensity projection (MIP) coronal a nd sagittal reformats were then acquired through the thorax. For radiation dose reduction, the follo wing was used: automated exposure control, adjustment of mA and/or kV according to patient size. COMPARISON: [facility], CT, CT ABD PELVIS W CON, 01/15/2017, 12:30. FINDINGS: Image quality: marginal. Pulmonary arteries: No infection the main, left or right pulmonary arteries. More distal pulmonary ar teries are insertion opacified and appeared respiratory motion. They cannot be evaluated for pulmonar y embolus.. Lungs and pleura: Lungs are clear. No pleural effusions or pneumothorax. Central and peripheral ai rways are patent. Mediastinum: Heart size is normal, without pericardial effusion. No mediastinal or hilar adenopathy . Thoracic aorta is normal in caliber and enhancement. Esophagus is normal in caliber, without hiat al hernia. Bones and chest wall: No suspicious bony lesions. Ribs and thoracic spine appear intact throughout. Thyroid gland is normal where seen. No axillary or supraclavicular adenopathy. Abdomen: Visualized upper abdominal solid organs appear normal in the early arterial phase of enhanc ement. IMPRESSION: No acute emboli in the main, left or right pulmonary arteries. Smaller pulmonary arteries are obscure d by respiratory artifact and poor opacification. They cannot be evaluated for pulmonary embolus. Dictated by: Arpit Wilkins M.D. on 05/09/2017 at 19:51 Approved by: Arpit Wilkins M.D. on 05/09/2017 at 19:58
[2017-05-09 21:17] VITALS: BP 139/79; PULSE 78; RESP 18; O2SAT 96
== END 2017-05-09 21:18 | disposition home or self-care (01) ==
LOC: SED 14:06
DX: J45.901 Unspecified asthma with (acute) exacerbation (principal); R09.02 Hypoxemia; R06.02 Shortness of breath; D72.829 Elevated white blood cell count, unspecified; G47.33 Obstructive sleep apnea (adult) (pediatric); K21.9 Gastro-esophageal reflux disease without esophagitis; G25.81 Restless legs syndrome; M79.7 Fibromyalgia; I10 Essential (primary) hypertension; Z99.81 Dependence on supplemental oxygen; Z86.711 Personal history of pulmonary embolism; Z79.01 Long term (current) use of anticoagulants
CPT/HCPCS: 36415; 71010; 71275; 80053; 83880; 84484; 85025; 93005; 94664; 99285; J7614; Q9967